=== PATIENT | male | born 1980 ===

== ENCOUNTER 2018-05-22 00:04 | Emergency (ER) | payer SELFPAY ==
[2018-05-22 00:30] VITALS: TEMP 98.3
[2018-05-22] MEDS ORDERED: Tetanus/Diphtheria Toxoids 0.5 ml Syringe IM ONE ×2 (00:38→01:08)
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
[2018-05-22] MEDS ORDERED: Amoxicillin-Clav 875-125 mg Tab PO STA (03:07)
[2018-05-22] MEDS ORDERED: Amoxicillin-Clav 875-125 mg Tab PO ONE (03:16)
[2018-05-22] MEDS ORDERED: Bacitracin 500 Units/gm Oint Foilpak UD ONE (03:20)
[2018-05-22 03:32] VITALS: BP 145/89; PULSE 91; RESP 16
[2018-05-22 04:24] VITALS: O2SAT 97
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
== END 2018-05-22 03:32 | disposition home or self-care (01) ==
LOC: C.ER 00:04
DX: S02.2XXA Fracture of nasal bones, initial encounter for closed fracture (principal); S00.83XA Contusion of other part of head, initial encounter; Y04.0XXA Assault by unarmed brawl or fight, initial encounter; Y92.9 Unspecified place or not applicable; Z23 Encounter for immunization